=== PATIENT | male | born 1975 | race Caucasian/White ===

== ENCOUNTER 2017-02-27 11:38 | Day surgery (SDC) | payer BC ==
[~2017-02-27 11:38] MED LIST: RINGER'S SOLUTION,LACTATED 1,000 ML IV PRN
[2017-02-27] MEDS ORDERED: RINGER'S SOLUTION,LACTATED 1,000 ML IV ONE (12:15)
[2017-02-27] MEDS ORDERED: LIDOCAINE HCL/EPINEPHRINE 30 ML VIAL IJ ONE (14:56)
--- NOTE | 2017-02-27 15:32 | OR ---
Operative Report - Dictated Report Narrative: Date: 02/27/2017 Preop dx: Pilar cyst x 4, scalp Postop dx: Same Procedure: Excision right occiput 7mm, left occiput 3mm, left frontal 1cm, vertex 2 cm pilar cysts Staff surgeon: Kamari Espinal MD Anesthesia: local/MAC specimens: pilar cysts x 4 as described above EBL: minimal description: The hair overlying these lesions was trimmed with clippers. The scalp was prepped with betadine and sterile drapes applied. Each lesion was anesthetized with 1% xylocaine with epi. A linear incision was carried out over these respective masses with dissection down to the capsule that was then completely excised with blunt dissection. The one exception was the left occipital lesion that was quite small and was punched out with a 3mm punch. All wounds were closed with sravani and dressed with neosporin ointment. The patient tolerated the procedure well and was discharged from the operating room in stable condition.
[2017-02-27 16:14] VITALS: BP 126/79
== END 2017-02-27 11:39 | disposition home or self-care (01) ==
LOC: AMB 11:38
PROVIDERS: ATTEND Specialist
PROC: 0HB0XZZ Excision of Scalp Skin, External Approach (ICD-10-PCS; principal; 2017-02-27 14:00)
DX: L72.0 Epidermal cyst (principal); L72.11 Pilar cyst; E78.5 Hyperlipidemia, unspecified; Z87.891 Personal history of nicotine dependence; Z68.31 Body mass index [BMI] 31.0-31.9, adult